=== PATIENT | male | born 1995 | race Caucasian/White ===

== ENCOUNTER 2020-04-13 07:16 | Emergency (ER) | payer OTHER ==
[~2020-04-13 07:16] MED LIST: ZOFRAN ODT 4 MG4 MG SL
[2020-04-13 08:36] LABS: HEMOGLOBIN 14.8 gm/dl (14.0-17.5); RED BLOOD COUNT 5.12 M/UL (4.20-5.50); WHITE BLOOD COUNT 10.9 K/UL (4.5-11.0)
[2020-04-13 08:57] LABS: BUN/CREATININE RATIO 12 (0-10)
[2020-04-13] MEDS ORDERED: ZOFRAN4 MG PO (12:21)
== END 2020-04-13 12:36 | disposition home or self-care (01) ==
LOC: ER1 07:16
PROVIDERS: Preventive Medicine Occupational Medicine
DX: R11.2 Nausea with vomiting, unspecified (principal); R10.9 Unspecified abdominal pain
CPT/HCPCS: 80053; 80307; 81001; 83690; 85025; 85652; 86140; 87081; 87086; 87880; 96374; 96376; 99284; J2405; J7030; Q9967